=== PATIENT | male | born 1950 | race Caucasian/White ===

== ENCOUNTER → 2024-06-11 09:53 | Outpatient (REF) | payer OTHER, SELFPAY | LOC: PAVMRI 09:53 | PROVIDERS: ATTENDING PHYSICIAN Physician Assistant; FAMILY PHYSICIAN Internal Medicine | DX: M54.16 Radiculopathy, lumbar region (principal) | CPT/HCPCS: 72148 ==

== ENCOUNTER → 2024-12-28 14:01 | Outpatient (REF) | payer OTHER, SELFPAY | LOC: RCS 14:01 | PROVIDERS: ATTENDING PHYSICIAN Physician Assistant; FAMILY PHYSICIAN Internal Medicine | DX: R00.2 Palpitations (principal); R07.89 Other chest pain | CPT/HCPCS: 93017; 93350 ==

== ENCOUNTER → 2024-12-31 06:57 | Outpatient (REF) | payer OTHER, SELFPAY | LOC: RCS 06:57 | PROVIDERS: ATTENDING PHYSICIAN Physician Assistant; FAMILY PHYSICIAN Internal Medicine | DX: R00.2 Palpitations (principal); R07.89 Other chest pain | CPT/HCPCS: 93306 ==